=== PATIENT | female | born 1935 | race Caucasian/White ===

== ENCOUNTER 2023-03-23 22:38 | Emergency (ER) | payer OTHER ==
[2023-03-23 23:14] VITALS: BP 130/81; PULSE 91; RESP 17; TEMP 97.9; BMI 31.1
[2023-03-24 00:33] LABS: BASO % 0.8 % (0-2.0); EOS % 3.5 % (0-4.5); HEMATOCRIT 39.1 % (32.4-45.2); LYMPH % 31.9 % (8-40); MCH 29.3 pg (25.7-33.7); MCHC 33.3 g/dl (32.0-36.0); MEAN CELL VOLUME 87.9 fl (80-96); MONO % 10.6 % (3.8-10.2); NEUT % 53.2 % (42.8-82.8); PLATELET COUNT 139 10^3/uL (134-434); RBC 4.44 M/mm3 (3.60-5.2); WHITE BLOOD COUNT 6.1 K/mm3 (4.0-10.0)
[2023-03-24 00:34] LABS: EPI CELLS 20 /uL (0-25.1); HYALINE CASTS 15 /uL (0-3.1); PH,URINE >= 9.0 (5.0-8.0); URINE APPEARANCE TURBID; URINE BACTERIA >9,000 /uL (0-1359); URINE BILIRUBIN NEGATIVE (NEGATIVE); URINE COLOR YELLOW; URINE GLUCOSE (UA) NEGATIVE (NEGATIVE); URINE KETONE NEGATIVE (NEGATIVE); URINE LEUK ESTERASE 3+ (NEGATIVE); URINE NITRITE POSITIVE (NEGATIVE); URINE PROTEIN 2+ (NEGATIVE); URINE UROBILINOGEN 0.2 mg/dL (0.2-1.0); URINE WBC 3863 /uL (0-25.8)
[2023-03-24 00:48] LABS: CALCIUM 9.6 mg/dL (8.5-10.1)
[2023-03-24 00:49] LABS: ALBUMIN 3.1 g/dl (3.4-5.0); BLOOD UREA NITROGEN 31.7 mg/dL (7-18)
[2023-03-24 00:52] LABS: CREATININE 1.1 mg/dL (0.55-1.3)
[2023-03-24 00:53] LABS: TOT PROT 6.4 g/dl (6.4-8.2)
[2023-03-24 00:54] LABS: BILIRUBIN,TOTAL 0.6 mg/dL (0.2-1)
[2023-03-24] MEDS ORDERED: CEFTRIAXONE 1 GM/50 ML BAG ONE (01:25)
[2023-03-24 06:19] LABS: YEAST NONE SEEN (NEGATIVE)
== END 2023-03-24 02:09 | disposition home or self-care (01) ==
LOC: JER 22:38
DX: T83.091A Other mechanical complication of indwelling urethral catheter, initial encounter (principal); N30.90 Cystitis, unspecified without hematuria
CPT/HCPCS: 36415; 80053; 81003; 85025; 87086; 87186; 99284-25

== ENCOUNTER 2023-05-31 13:34 | Emergency (ER) | payer OTHER ==
[2023-05-31 14:36] VITALS: BMI 38.9
[2023-05-31 15:05] LABS: BASO % 0.8 % (0-2.0); EOS % 2.1 % (0-4.5); HEMATOCRIT 39.7 % (32.4-45.2); HEMOGLOBIN 13.5 GM/dL (10.7-15.3); LYMPH % 27.1 % (8-40); MCH 29.9 pg (25.7-33.7); MCHC 34.1 g/dl (32.0-36.0); MEAN CELL VOLUME 87.9 fl (80-96); MEAN PLT VOLUME 8.9 fl (7.5-11.1); MONO % 9.4 % (3.8-10.2); NEUT % 60.6 % (42.8-82.8); PLATELET COUNT 135 10^3/uL (134-434); RBC 4.52 M/mm3 (3.60-5.2); RDW 15.8 % (11.6-15.6); WHITE BLOOD COUNT 6.3 K/mm3 (4.0-10.0)
[2023-05-31] MEDS ORDERED: SODIUM CHLORIDE 0.9% 500 ML INFUS.BAG IV ONE (15:09)
[2023-05-31 15:29] LABS: POTASSIUM 3.8 mmol/L (3.5-5.1)
[2023-05-31 15:31] LABS: CALCIUM 9.4 mg/dL (8.5-10.1)
[2023-05-31 15:32] LABS: ALBUMIN 3.1 g/dl (3.4-5.0); BLOOD UREA NITROGEN 30.9 mg/dL (7-18)
[2023-05-31 15:36] LABS: CREATININE 0.9 mg/dL (0.55-1.3)
[2023-05-31 15:37] LABS: BILIRUBIN,TOTAL 0.5 mg/dL (0.2-1); TOT PROT 6.3 g/dl (6.4-8.2)
[2023-05-31] MEDS ORDERED: APIXABAN 5 MG TABLET PO STA (21:02)
[2023-05-31] MEDS ORDERED: metoPROLOL SUCCINATE 25 MG TAB.SR.24H (FP) PO ONE ×2 (21:03→21:05)
[2023-05-31] MEDS ORDERED: APIXABAN 5 MG TABLET ONE (21:05)
[2023-05-31 21:20] VITALS: BP 106/72; PULSE 78; RESP 20; TEMP 98.3
== END 2023-05-31 21:22 ==
LOC: JER 13:34
DX: T83.091A Other mechanical complication of indwelling urethral catheter, initial encounter (principal); Y84.6 Urinary catheterization as the cause of abnormal reaction of the patient, or of later complication, without mention of misadventure at the time of the procedure
CPT/HCPCS: 36415; 73562-TC-LT-FY; 74176-TC; 80053; 85025; 93005; 93010; 99285-25